=== PATIENT | female | born 1990 | race Caucasian/White ===

== ENCOUNTER → 2017-05-19 | Outpatient (CLI) | payer BC ==
--- NOTE | 2017-05-19 14:04 | DIAGNOSTIC IMAGING REPORT ---
KUB CLINICAL HISTORY: ABD PAIN/CONSTIPATION pain COMPARISON STUDY: No previous studies for comparison. FINDINGS: The soft tissues, psoas shadows, renal outlines and intestinal gas pattern appear normal. There is no evidence for bowel obstruction. No abnormal abdominal calcifications are seen. IMPRESSION: Negative study. Normal fecal load. The above report was generated using voice recognition software. It may contain grammatical, syntax or spelling errors. Electronically signed by: Roverto Jolly M.D. 05/19/2017 2:03 PM Dictated Date/Time: 05/19/2017 2:02 PM
== END | disposition home or self-care (01) ==
LOC: C.RAD1850 13:48
DX: R10.9 Unspecified abdominal pain (principal); K59.00 Constipation, unspecified